=== PATIENT | male | born 1975 | race Two or more races ===

== ENCOUNTER 2018-08-30 19:39 | Emergency (ER) | payer MEDICAID ==
[~2018-08-30] VITALS: Ht 170.2 cm; Wt 83.5 kg
--- NOTE | 2018-08-30 19:45 | NUR ---
Dr. Solis at bedside for MSE.
--- NOTE | 2018-08-30 20:02 | NUR ---
Pt out of ER for CT.
--- NOTE | 2018-08-30 20:10 | NUR ---
Pt back to ER from CT.
--- NOTE | 2018-08-30 20:39 | NUR ---
Patient discharged to home in stable conditon. Written and verbal after care instructions given. Patient verbalizes understanding of instructions. Pt ambulated out of ER with steady gait, no acute signs of distress, VSS, all belongings taken.
[2018-08-30 20:40] VITALS: BP 142/94
== END 2018-08-30 20:40 | disposition home or self-care (01) ==
LOC: ER 19:42
DX: R51 Headache (principal)
CPT/HCPCS: 70450; A4663